=== PATIENT | male | born 1965 | race Caucasian/White ===

== ENCOUNTER 2020-01-29 13:02 | Day surgery (SDC) | payer MEDICAID ==
[2020-01-22 14:37] LABS: BASOPHILS % (AUTO) 0.5 % (0-1); EOSINOPHILS # (AUTO) 0.5 X10'3 (0-0.9); EOSINOPHILS % (AUTO) 5.3 % (0-6); LYMPHOCYTES # (AUTO) 1.6 X10'3 (1.1-4.8); LYMPHOCYTES % (AUTO) 18.6 % (21-51); MEAN CORPUSCULAR HEMOGLOBIN 29.1 PG (27.0-31.0); MEAN CORPUSCULAR HGB CONC 33.2 g/dL (33.0-36.5); MEAN CORPUSCULAR VOLUME 87.9 FL (78-98); MEAN PLATELET VOLUME 8.3 FL (7.4-10.4); MONOCYTES # (AUTO) 0.8 X10'3 (0-0.9); MONOCYTES % (AUTO) 9.4 % (2-12); NEUTROPHILS # (AUTO) 5.8 X10'3 (1.8-7.7); NEUTROPHILS % (AUTO) 66.2 % (42-75); PRE OP HEMATOCRIT 42.9 % (42.0-52.0); PRE OP HEMOGLOBIN 14.2 g/dL (14.0-17.9); PRE OP PLATELET COUNT 293 X10'3 (140-440); RED BLOOD COUNT 4.88 X10'6 (4.70-6.10); RED CELL DISTRIBUTION WIDTH 13.8 % (11.5-14.5)
[2020-01-22 14:51] LABS: ALBUMIN 3.9 G/DL (3.4-5.0); ALBUMIN/GLOBULIN RATIO 1.2 (1.1-1.5); ALKALINE PHOSPHATASE 85 IU/L (46-116); BLOOD UREA NITROGEN 17 MG/DL (7-18); BUN/CREATININE RATIO 16.5 (5.4-32.0); CALCIUM 8.8 MG/DL (8.5-10.1); CHLORIDE 104 MMOL/L (99-107); CREATININE 1.03 MG/DL (0.60-1.10); PRE OP ALT 44 U/L (30-65); PRE OP ANION GAP 4 (8-16); PRE OP AST 23 U/L (10-37); PRE OP BILIRUB, TOTAL 0.3 MG/DL (0.0-1.0); PRE OP GLUCOSE 95 MG/DL (70-104); PRE OP POTASSIUM 3.7 MMOL/L (3.4-5.1); PRE OP SODIUM 138 MMOL/L (135-145); TOTAL CARBON DIOXIDE 29.6 MMOL/L (24-32); TOTAL PROTEIN 7.1 G/DL (6.4-8.2); eGFR 75 ML/MIN
[~2020-01-29] VITALS: Ht 180.3 cm; Wt 108.9 kg
[~2020-01-29 13:02] MED LIST: ALBU8.5H8 INH; ASPI-1265 PO; ATOR-2 PO; ISOS120T13 PO; MULT-1085 PO; NITR0.4T48 SL; acetaminophen 325mg tablet PO ONE; albuterol 2.5 MG/3 ML nebule NEB ONE; ascorbic acid 500mg tablet PO ONE; ceFAZolin 2gm in dextrose, iso 50 ML IV ONE; celeCOXIB 100mg capsule PO ONE; duloxetine 20mg capsule.DR PO ONE; famotidine 20mg tablet PO ONE; gabapentin 300mg capsule PO ONE; metoclopramide 5 mg/ml inj IV ONE; pregabalin 75mg capsule PO ONE; ringers solution, lacted 1,000 ML IV SCH; vancomycin 1,500 MG in NS 300ml IV soln IV ONE
[2020-01-29 13:15] VITALS: BP 147/82
[2020-01-29] MEDS ORDERED: ringers solution, lacted 1,000 ML IV SCH (13:59)
[2020-01-29] MEDS ORDERED: morphine 4 MG/ML inj SYRINge IV PRN (14:00)
[2020-01-29] MEDS ORDERED: fentaNYL/PF 50MCG/1 ML 2ML syringe IV PRN ×2 (14:00)
[2020-01-29] MEDS ORDERED: ondansetron/PF 4mg/2ml inj IV PRN (14:00)
[2020-01-29] MEDS ORDERED: morphine 2 MG/ML inj. syringe IV PRN (14:00)
[2020-01-29] MEDS ORDERED: hydrALAZINE 20mg/ml inj. IV PRN (14:00)
[2020-01-29] MEDS ORDERED: labetalol 20mg/4ml (5mg/ml) syringe IV PRN (14:00)
[2020-01-29] MEDS ORDERED: methylPREDNISolone sod succ 125mg/2ml vial ONE (14:06)
[2020-01-29] MEDS ORDERED: BUPIVAcaine/PF 2.5 mg/ml (0.25%) 30ml vial ONE (14:06)
[2020-01-29] MEDS ORDERED: propofol 10mg/ml 20ml vial IV ONE (14:40)
[2020-01-29 15:29] VITALS: BP 112/75
--- NOTE | 2020-01-29 15:29 | NUR ---
Received from OR via , accompanied by Anesthesiologist DR GONZALEZ and report given by Anesthesiolgist. AWAKE AND SARAH PAIN. VITALS STABLE. DRESSING DI. FINGERS WARM AND PINK.
[2020-01-29 15:39] VITALS: BP 112/79
[2020-01-29 15:49] VITALS: BP 102/68
[2020-01-29 15:59] VITALS: BP 109/62
[2020-01-29 16:09] VITALS: BP 104/65
--- NOTE | 2020-01-29 16:29 | NUR ---
AWAKE AND ORIENTED. VITALS STABLE. DRESSING DI. SARAH PAIN. HOME WITH HIS AT THIS TIME.
== END 2020-01-29 16:29 | disposition home or self-care (01) ==
LOC: PAS 13:02
PROVIDERS: ATTEND Orthopaedic Surgery
DX: G56.01 Carpal tunnel syndrome, right upper limb (principal); G56.21 Lesion of ulnar nerve, right upper limb; I25.118 Atherosclerotic heart disease of native coronary artery with other forms of angina pectoris; I10 Essential (primary) hypertension; J45.909 Unspecified asthma, uncomplicated; M19.90 Unspecified osteoarthritis, unspecified site; E78.5 Hyperlipidemia, unspecified; E66.8 Other obesity; Z68.34 Body mass index [BMI] 34.0-34.9, adult; M19.071 Primary osteoarthritis, right ankle and foot; Z95.5 Presence of coronary angioplasty implant and graft; Z79.899 Other long term (current) drug therapy; Z79.01 Long term (current) use of anticoagulants; Z20.828 Contact with and (suspected) exposure to other viral communicable diseases; Z72.89 Other problems related to lifestyle; Z82.49 Family history of ischemic heart disease and other diseases of the circulatory system
CPT/HCPCS: 36415; 64719; 64721; 80053; 82948; 85025; A6222; J2704; J2765; J2930; J3370; J3490; J7040; U0003; A4215; A4618; A6449; A7000; J7120

== ENCOUNTER 2023-10-05 13:04 | Outpatient (CLI) | payer MEDICAID ==
[~2023-10-05 13:04] MED LIST changes: +ALBU8.5H17 INH; -ALBU8.5H8 INH; -acetaminophen 325mg tablet PO ONE; -albuterol 2.5 MG/3 ML nebule NEB ONE; -ascorbic acid 500mg tablet PO ONE; -ceFAZolin 2gm in dextrose, iso 50 ML IV ONE; -celeCOXIB 100mg capsule PO ONE; -duloxetine 20mg capsule.DR PO ONE; -famotidine 20mg tablet PO ONE; -gabapentin 300mg capsule PO ONE; -metoclopramide 5 mg/ml inj IV ONE; -pregabalin 75mg capsule PO ONE; -ringers solution, lacted 1,000 ML IV SCH; -vancomycin 1,500 MG in NS 300ml IV soln IV ONE
== END 2023-10-05 23:59 | disposition home or self-care (01) ==
LOC: MRI 13:04
PROVIDERS: ATTEND Physician Assistant
DX: M47.812 Spondylosis without myelopathy or radiculopathy, cervical region (principal); M48.02 Spinal stenosis, cervical region; M50.221 Other cervical disc displacement at C4-C5 level; M50.222 Other cervical disc displacement at C5-C6 level
CPT/HCPCS: 72141